=== PATIENT | male | born 1970 | race Caucasian/White ===

== ENCOUNTER 2021-12-27 07:18 | Emergency (ER) | payer OTHER, BC ==
[2021-12-27] MEDS ORDERED: Ibuprofen 600 MG Tab PO ONE (07:31)
== END 2021-12-27 09:15 | disposition home or self-care (01) ==
LOC: MW.ED 07:18
DX: S82.65XA Nondisplaced fracture of lateral malleolus of left fibula, initial encounter for closed fracture (principal); V29.9XXA Motorcycle rider (driver) (passenger) injured in unspecified traffic accident, initial encounter
CPT/HCPCS: 29515; 73610-26-LT; 73610-LT; 99283-25; A9270-GY

== ENCOUNTER 2023-04-28 13:47 | Emergency (ER) | payer OTHER, BC ==
[2023-04-28] MEDS ORDERED: Acetaminophen 500 MG Tab PO ONE (14:20)
== END 2023-04-28 16:24 | disposition home or self-care (01) ==
LOC: MW.ED 13:47
DX: S92.102A Unspecified fracture of left talus, initial encounter for closed fracture (principal); V89.2XXA Person injured in unspecified motor-vehicle accident, traffic, initial encounter
CPT/HCPCS: 73590; 73610; 73630; 99284; A9270; 99283